=== PATIENT | female | born 1955 | race Caucasian/White ===

== ENCOUNTER → 2017-02-12 | Outpatient (CLI) | payer OTHER ==
[~2017-02-12] MED LIST: ASPI-391 PO; CLTP PO; CYAN100020 PO; CYCL10TA6 PO; CYCL5TAB PO; FENT25DI10 TD; GLC500 PO; HYDR-4079 PO; IBAN150T PO; LSX20 PO; MISCCAP80; MULT-190 PO; MULT-506 PO; OMEG10007 PO; PAIN PUMP; PRLSR20 PO; ROSU5TAB PO; SENN-65 PO; SERT-234 PO; SYN25 PO; VITAMIN D3 PO
--- NOTE | 2017-02-12 14:24 | DIAGNOSTIC IMAGING REPORT ---
L-SPINE MIN 4 VIEWS ROUTINE HISTORY: 61 years-old Female R/O CATHETER FX, WORSENING PAIN patient has an intrathecal catheter with a stimulator battery pack. Follow-up study to assess integrity of catheter. COMPARISON: The rectal lumbar spine radiographs 03/09/2015 TECHNIQUE: 7 views of the thoracolumbar spine FINDINGS: Battery pack projects over the left lateral gluteal region. There is a single catheter emanating from the battery pack which enters the central canal at approximately the L2-L3 level and projects superiorly terminating at the T12 level. The catheter appears to be intact without a focal disruption identified. Pronounced sigmoidal scoliosis of the thoracolumbar spine redemonstrated. Mild cardiomegaly. Atherosclerosis of the aorta. Mild background bone demineralization with multifocal degenerative changes of the spine. Surgical clips project over the right lower pelvis. IMPRESSION: 1. Intrathecal catheter appears intact without evidence of focal disruption terminating at the level of T12. 2. Pronounced thoracolumbar scoliosis redemonstrated. The above report was generated using voice recognition software. It may contain grammatical, syntax or spelling errors. Electronically signed by: Solomon Espinosa M.D. 02/12/2017 2:23 PM Dictated Date/Time: 02/12/2017 2:18 PM
== END ==
LOC: C.RADBC 13:54
PROVIDERS: ATTEND Anesthesiology
DX: Z97.8 Presence of other specified devices (principal); M54.5 Low back pain

== ENCOUNTER → 2017-02-25 | Outpatient (CLI) | payer OTHER ==
[~2017-02-25] MED LIST changes: +GADAVIST IV PRN
--- NOTE | 2017-02-25 14:12 | DIAGNOSTIC IMAGING REPORT ---
THORACIC SPINE MRI WITH AND WITHOUT CONTRAST HISTORY: Pain pump with intrathecal catheter. R/O GRANULOMA, WORSENING BACK PAIN TECHNIQUE: Multiplanar multisequence MRI of the thoracic spine was performed both before and after the intravenous administration of contrast. COMPARISON: Lumbar spine 02/12/2017. FINDINGS: There is again noted severe S-shaped scoliosis of the thoracolumbar spine. There is also marked kyphosis of the thoracic spine. No fracture or subluxation. Mild disc space narrowing within the lower thoracic spine. No abnormal enhancement. Specifically, there is no masslike enhancement at the tip of the intrathecal catheter to suggest a granuloma. The catheter tip terminates at the T11-T12 disc space best seen on sagittal image 9 and 15 of the T2 lumbar spine sequence. Superior to the tip there are few nodular areas of signal abnormality within the left side of the central canal best seen on axial T2 images 22 and 23 of 33. However, this is above the level of the catheter tip and therefore favors pulsation artifact. The intrathecal catheter appears to enter at the L3-L4 interlaminar space. IMPRESSION: 1. Intrathecal catheter terminates at the level of the T11-T12 disc space. No nodular areas of enhancement within the catheter tip suggest a granuloma 2. Severe S-shaped scoliosis is again noted. Electronically signed by: Landon Allen M.D. 02/25/2017 2:10 PM Dictated Date/Time: 02/25/2017 1:49 PM
== END | disposition home or self-care (01) ==
LOC: C.MRIBC 12:31
PROVIDERS: ATTEND Anesthesiology
DX: L92.9 Granulomatous disorder of the skin and subcutaneous tissue, unspecified (principal); R52 Pain, unspecified